=== PATIENT | female | born 1945 | race Caucasian/White ===

== ENCOUNTER 2019-04-20 23:43 | Observation (INO) | payer MEDICARE ==
[2019-04-21 00:22] LABS: #Eosinphils 0.1 thou/uL (0.0-0.7); #Lymphocytes 1.3 thou/uL (1.20-3.40); #Monocytes 0.8 thou/uL (0.11-0.59); #Neutrophils 13.2 thou/uL (1.40-6.50); %Basophils 0.1 % (0.0-1.0); %Eosinophils 0.3 % (0.0-10.0); %Lymphocytes 8.6 % (21.0-51.0); %Monocytes 5.4 % (0.0-10.0); %Neutrophils 85.5 % (42.0-75.0); Hemoglobin 14.5 g/dL (12.0-16.0); Mean Corpuscular HGB CONC 33.3 g/dL (32.0-36.0); Mean Corpuscular Hemoglobin 29.8 pg (27.0-31.0); Mean Corpuscular Volume 89.5 fL (78.0-98.0); Mean Platelet Volume 7.1 fL (7.4-10.4); Platelet Count 354 thou/uL (130-400); RBC Distribution Width 11.5 % (11.5-14.5); Red Blood Cell (RBC) Count 4.85 mill/uL (4.20-5.40); White Blood Cell (WBC) Count 15.4 thou/uL (4.8-10.8)
[2019-04-21 00:43] LABS: ALT (SGPT) 15 U/L (8-55); AST (SGOT) 16 U/L (5-34); Albumin 4.1 g/dL (3.4-4.8); Alkaline Phosphatase 92 U/L (40-110); Anion Gap 16 mmol/L (10-20); BUN (Urea Nitrogen) 26 mg/dL (9.8-20.1); Bilirubin, Total 0.4 mg/dL (0.2-1.2); Calc. Creatinine Clearance 0 mL/min (70-130); Calcium 9.7 mg/dL (7.8-10.44); Carbon Dioxide 23 mmol/L (23-31); Chloride 93 mmol/L (98-107); Estimated GFR-MDRD 45; Globulin 2.7 g/dL (2.4-3.5); Glucose 143 mg/dL (83-110); Potassium 3.9 mmol/L (3.5-5.1); Protein, Total 6.8 g/dL (6.0-8.3); Sodium 128 mmol/L (136-145)
[2019-04-21 02:31] LABS: Bacteria/HPF None Seen HPF (None Seen); Bilirubin Negative (Negative); Blood, Urine Negative (Negative); Clarity Clear (Clear); Glucose, Urine (Dipstick) Normal (Negative); Leukocyte 75 Leu/uL (Negative); Nitrite Negative (Negative); Protein, Urine (Dipstick) 10 mg/dL (Neg-Trace); RBC/HPF 0-3 HPF (0-3); Urobilinogen Normal mg/dL (Less than 2); WBC/HPF 0-3 HPF (0-3)
[2019-04-21] MEDS ORDERED: Piperacillin/Tazobactam 4.5 GM VIAL ONE (03:19)
--- NOTE | 2019-04-21 03:38 | PDOC.FPRHP ---
- History of Present Illness Chief Complaint: Abdominal pain History of Present Illness: Pt is a 73 yo female who presents to the emergency department with abdominal pain, 2 day hx of constipation, and feeling unable to urinate. She endorsed intermittent diarrhea. Her abdominal pain was alleviated after a bm in the ed. She denies fever, chills, N/V, melena, hematochezia, recent travel, change in food, camping. She had a colonoscopy within 10 years which was normal. She is tolerating food but has decreased fluid intake over the last few days. She lives at home with her . PCP: Luis Alfredo ED Course: In the ED she was given zosyn, 1 L NS - Allergies/Adverse Reactions Allergies Allergy/AdvReac Type Severity Reaction Status Date / Time No Known Drug Allergies Allergy Verified 04/21/19 06:34 - Home Medications Medication Instructions Recorded Confirmed Type ARIPiprazole [Aripiprazole] 2 mg PO DAILY 04/21/19 04/21/19 History Cyproheptadine [Periactin] 4 mg PO DAILY 04/21/19 History Levothyroxine Sodium 50 mcg PO DAILY 04/21/19 04/21/19 History Venlafaxine HCl [Venlafaxine HCl 150 mg PO DAILY 04/21/19 04/21/19 History ER] buPROPion HCl [Bupropion Xl] 300 mg PO DAILY 04/21/19 04/21/19 History - History PMHx: hypothyroid, depression PSHx: hysterectomy FHx: non-contributory, no colon cancer Social: lives with , denies T/A/D - Review of Systems General: reports: weight/appetite/sleep changes. denies: fever/chills Eyes: denies: eye pain, vision changes ENT: denies: nasal congestion, rhinorrhea Respiratory: denies: cough, congestion Cardiovascular: denies: chest pain, palpitation, edema Gastrointestinal: reports: constipation, abdominal pain. denies: nausea, vomiting, diarrhea, GI bleeding Genitourinary: denies: incontinence, dysuria, polyuria Skin: denies: rashes, lesions Musculoskeletal: denies: pain, tenderness Neurological: denies: numbness, syncope Psychological: denies: anxiety, depression - Vital signs BP: 152/87 HR: 104 -> 90 RR: 30 Tmax: 98.4 Pox: 96% on RA Wt: 50 kg - Physical Exam Constitutional: NAD, awake, alert and oriented HEENT: PERRLA, EOMI Neck: trachea midline, no JVD Heart: RRR, normal S1/S2, no edema Lungs: CTAB, no respiratory distress, no wheezing Abdomen: soft, non-tender, bowel sounds present Musculoskeletal: normal tone, ROM grossly normal Neurological: no focal deficit, normal sensation Skin: no rash/lesions, capillary refill <2 seconds Heme/Lymphatic: no purpura, no petechia -Psychiatric: Flat affect, decent short term memory FMR H&P: Results - Labs Result Diagrams: 04/21/19 00:13 04/21/19 00:13 Lab results: WBC 15.4 thou/uL (4.8-10.8) H 04/21/19 00:13 Hgb 14.5 g/dL (12.0-16.0) 04/21/19 00:13 Hct 43.4 % (36.0-47.0) 04/21/19 00:13 MCV 89.5 fL (78.0-98.0) 04/21/19 00:13 Plt Count 354 thou/uL (130-400) 04/21/19 00:13 Neutrophils % 85.5 % (42.0-75.0) H 04/21/19 00:13 Sodium 128 mmol/L (136-145) L 04/21/19 00:13 Potassium 3.9 mmol/L (3.5-5.1) 04/21/19 00:13 Chloride 93 mmol/L (98-107) L 04/21/19 00:13 Carbon Dioxide 23 mmol/L (23-31) 04/21/19 00:13 BUN 26 mg/dL (9.8-20.1) H 04/21/19 00:13 Creatinine 1.17 mg/dL (0.6-1.1) H 04/21/19 00:13 Glucose 143 mg/dL (83-110) H 04/21/19 00:13 Lactic Acid 1.4 mmol/L (0.5-2.2) 04/21/19 02:35 Calcium 9.7 mg/dL (7.8-10.44) 04/21/19 00:13 Total Bilirubin 0.4 mg/dL (0.2-1.2) 04/21/19 00:13 AST 16 U/L (5-34) 04/21/19 00:13 ALT 15 U/L (8-55) 04/21/19 00:13 Alkaline Phosphatase 92 U/L (40-110) 04/21/19 00:13 Serum Total Protein 6.8 g/dL (6.0-8.3) 04/21/19 00:13 Albumin 4.1 g/dL (3.4-4.8) 04/21/19 00:13 Urine Ketones 10 mg/dL (Negative) A 04/21/19 02:13 Urine Blood Negative (Negative) 04/21/19 02:13 Urine Nitrite Negative (Negative) 04/21/19 02:13 Ur Leukocyte Esterase 75 Sumaya/uL (Negative) A 04/21/19 02:13 Urine RBC 0-3 HPF (0-3) 04/21/19 02:13 Urine WBC 0-3 HPF (0-3) 04/21/19 02:13 Ur Squamous Epith Cells 4-6 HPF (0-3) A 04/21/19 02:13 Urine Bacteria None Seen HPF (None Seen) 04/21/19 02:13 - Radiology Interpretation CT scan - abdomen Status: pending Additional comment: Per report from ED pt has colitis FMR H&P: A/P - Problem List (1) Colitis Current Visit: Yes Status: Acute Code(s): K52.9 - NONINFECTIVE GASTROENTERITIS AND COLITIS, UNSPECIFIED (2) Leukocytosis Current Visit: Yes Status: Acute Code(s): D72.829 - ELEVATED WHITE BLOOD CELL COUNT, UNSPECIFIED (3) Hypothyroid Current Visit: Yes Status: Acute Code(s): E03.9 - HYPOTHYROIDISM, UNSPECIFIED (4) Depression Current Visit: Yes Status: Acute Code(s): F32.9 - MAJOR DEPRESSIVE DISORDER , SINGLE EPISODE, UNSPECIFIED (5) Constipated Current Visit: Yes Status: Acute Code(s): K59.00 - CONSTIPATION, UNSPECIFIED - Plan Pt is a 73 yo female here for: # Sepsis 2/2 Colitis vs Dehydration vs Urinary Tract Infection Zosyn, 1 L given in the ED - will not continue abx as pt does not have fever, abdominal pain on exam, tachycardia resolving with fluids, lactic WNL. - monitor for signs of infection - procal pending - urine cx pending. Less likely UTI but will culture urine and treat if needed. # Abdominal Pain Likely 2/2 constipation. Had a BM in the ED. Will give miralax # Hypovolemic Hyponatremia - start NS 100 mls/hr # Hypothyroid - check TSH level # Depression - continue home medications - check TSH # NATALIYA vs CKD BUN: Creatinine ratio > 20 - possibly pre-renal etiology - monitor, fluids administered - unsure of baseline VTE: Lovenox Fluids: NS 100 mls/hr Diet: HH Code: Full Dispo: admit to medical obs FMR H&P: Upper Level - Pertinent history 73 year old male presents with bladder discomfort with onset this evening which brought her to the ED. She states it felt like she needed to urinate but could not. She also endorses a two day history of constipation. Last BM was hard, but nonbloody. Patient states she ate fine today, but she made a mistake by not drinking fluids and feels like she got behind. She denies diarrhea, fever, chills, chest pain, palpitations. She states that upon arrival to the ED, they gave her fluids, she urinated and has felt better since that time. She does endorse some fatigue when walking. She now denies any abdominal pain. Patient went to [facility] last week for nausea. She was given antiemetic and sent home from ED. - Pertinent findings General: Alert and oriented x3. No acute distress. HEENT: Dry MM Card: RRR, no murmurs Resp: CTA bilaterally, no acute respiratory distress Abd: Completely benign abdominal exam, nontender to palpation, nondistended, soft Psych: Flat affect, appears depressed Ext: No cyanosis or edema - Plan Date/Time: 04/21/19 0040 IKaitlin, have evaluated this patient and agree with findings/plan as outlined by lab intern resident. Pertinent changes/additions are listed here. Moderate dehydration - s/p 1L NS - Will start patient on NS for maintenance fluids given patient is hyponatremic - Patient already feels better after 1L of fluids Abdominal pain, unspecified and resolved - Per ED physician, read from CT abdomen shows evidence of colitis - Patient's abdominal exam was completely benign - We will treat her constipation which may be a contributing factor - UA with 75 LE's, but there were squamous cells present; will send for culture given presenting complaint was urinary retention - LA 1.4 Leukocytosis - WBC 15 - Likely related to viral process - No significant left shift - Procal pending - Trend Hypovolemic hyponatremia - Will start patient on NS given dehydration - Continue to monitor - Uncertain if new or chronic, suspect chronic - Asymptomatic NATALIYA vs CKD - Suspect degree of dehydration as contributing factor - s/p fluid resuscitation - Will continue to trend - Uncertain of baseline Depression - Patient seen by Psychiatrist today; abilify added to regimen today - Patient with flat affect DVT PPX: Lovenox Code Status: Full Dispo: Obs on medical. Anticipate d/c home today. Addendum - Attending - Attending Attestation Date/Time: 04/21/19 0342 I personally evaluated the patient and discussed the management with Dr. Mejia /Donna. I agree with the History, Examination, Assessment and Plan documented above with any addition or exceptions noted below. Patient here for constipation, stercoral colitis. Surgery was consulted but that consult was not necessary. We have received recommendations from surgery to perform disimpaction and enema and so we will perform that today. She has already had a large volume bowel movement so suspect that her stool burden is diminished. Continue IV fluid support and hold diet until we know the result of her disimpaction, but if successful can likely advance diet.
[2019-04-21 05:10] VITALS: BMI 20.9
[2019-04-21] MEDS: Levothyroxine Sodium 50 MCG TAB PO SCH (06:33)
[2019-04-21] MEDS: Sodium Chloride 0.9% 1,000 ML IV SCH (07:48)
--- NOTE | 2019-04-21 07:51 | CT ---
PRELIMINARY REPORT/[facility]/EMERGENCY AFTER HOURS PROCEDURE: EXAM: CT Abdomen and Pelvis with Intravenous Contrast CLINICAL HISTORY: F73 presents to ED via EMS with c/o constipation and lower ABD pain onset 2200 toda y. Pt reports having a BM at that time, described as small and round, then s/s began after that. Last BM before today was 2 days [employer]. Pt reports associated nausea and inability to urinate. TECHNIQUE: Axial computed tomography images of the abdomen and pelvis with intravenous contrast. CONTRAST: With; ISOVUE 370, 70ML COMPARISON: None provided. FINDINGS: LUNG BASES: No basilar airspace consolidation or pleural effusion. LIVER: There is a ill-defined cystic lesion in the right hepatic lobe measuring about 2.3 x 1.7 cm, w hich appears causing narrowing of the right distal main portal vein and the one of the branches. GALLBLADDER AND BILE DUCTS: Unremarkable. No calcified stone. No ductal dilation. PANCREAS: Unremarkable. SPLEEN: Unremarkable. ADRENAL GLANDS: Unremarkable. KIDNEYS, URETERS, AND BLADDER: Unremarkable. No hydronephrosis or nephrolithiasis. No ureteral or luis alberto dder calculi. STOMACH AND BOWEL: There is a circumferential wall thickening of the left hemicolon including transve rse colon, descending colon, and the sigmoid colon with a large fecal ball in the rectum. APPENDIX: No CT evidence for appendicitis. PERITONEUM: No free fluid. No free air. LYMPH NODES: No lymphadenopathy. REPRODUCTIVE: Unremarkable as visualized. VASCULATURE: No aortic aneurysm. BONES: No fracture or suspicious osseous abnormality. ABDOMINAL WALL AND SOFT TISSUES: Unremarkable. IMPRESSION: 1. There is a ill-defined cystic lesion in the right hepatic lobe measuring about 2.3 x 1.7 cm, which appears causing narrowing of the right distal main portal vein and the one of the branches. Questionable cholangiocarcinoma cannot be excluded. 2. There is a circumferential wall thickening of the left hemicolon including transverse colon, desce nding colon, and the sigmoid colon with a large fecal ball in the rectum. Questionable colitis. ELECTRONICALLY SIGNED BY: Martin Mehta MD Apr 21, 2019 2:14:52 AM CDT FINAL REPORT: EXAM: CT ABDOMEN AND PELVIS HISTORY: Constipation. Lower abdominal pain. COMPARISON: None.. Procedure: Multiple contiguous axial images were obtained and a CT of the abdomen and pelvis with IV contrast. C oronal reformats were performed. FINDINGS: Indeterminate mixed attenuation mass in the right hepatic lobe with areas of linear and nodular enhan cement. Differential considerations include enhancing cystic mass versus a hepatic hemangioma. Characterization is incomplete. Additional hypodensities in the hepatic parenchyma are too small to c haracterize. No evidence of obstructive uropathy. Subcentimeter hypodensities in the kidneys are too small to characterize. There may be mass effect on adjacent vascular structures. No mesenteric ma ss, lymphadenopathy, free air or free fluid. Normal caliber appendix. Transverse colon, descending colon, sigmoid colon demonstrate fluid attenuat ion with bowel wall thickening and pericolonic fat stranding. Correlate for colitis. Moderate fecal material in the rectum. Mild pericolonic fat stranding as well as presacral fat stranding. Correlate for stercoral colitis. IMPRESSION: 1. This report is in agreement with initial report by [facility]. Indeterminate lesion in the r ight hepatic lobe as described above. Differential considerations include a complex cystic mass versus a hemangioma. Better interrogation with abdomen MRI is recommended 2. Bowel wall thickening involving the colon. Correlate for infectious, inflammatory or ischemic coli tis. 3. Fecal material in the sigmoid colon, worrisome for possible stercoral colitis. Results study discussed with Dayanara patient's nurse 04/21/2019 at 7:50 AM. Code CR Transcribed Date/Time: 04/21/2019 7:58 AM
[2019-04-21] MEDS: cefTRIAXone\\ROCEPHIN 1 GM in Sodium Chloride 0.9% 100 ML IVPB SCH (09:39)
[2019-04-21] MEDS: Bupropion 150 MG XL TAB PO SCH (11:23)
[2019-04-21] MEDS: Aripiprazole 2 MG TAB PO SCH (11:23)
[2019-04-21] MEDS: Enoxaparin Sodium 40 MG/0.4 ML SYRINGE SC SCH (11:24)
[2019-04-21] MEDS: Venlafaxine HCl XR 150 MG CAP PO SCH (11:24)
[2019-04-21] MEDS: Polyethylene Glycol 3350 17 GM Packet PO SCH (11:24)
[2019-04-21] MEDS: Cyproheptadine 4 MG TAB PO SCH (11:24)
[2019-04-21] MEDS ORDERED: Piperacillin/Tazobactam 3.375 GM in Sodium Chloride 0.9% 100 ML IVPB SCH (12:00)
[2019-04-21] MEDS ORDERED: hydrALAZINE 20 MG/ML VIAL SLOW IVP SCH (13:15)
[2019-04-21] MEDS: metroNIDAZOLE 500 MG in Premix Bag 1 BAG IVPB SCH ×2 (13:27→21:15)
[2019-04-21] MEDS ORDERED: Iopamidol-370 76% 500 ML 1 ML ONE (14:25)
[2019-04-21] MEDS ORDERED: Lisinopril 10 MG TAB PO SCH (14:45)
[2019-04-21 15:26] LABS: Hemoglobin 14.2 g/dL (12.0-16.0)
[2019-04-21 15:52] LABS: Anion Gap 12 mmol/L (10-20); BUN (Urea Nitrogen) 17 mg/dL (9.8-20.1); Calc. Creatinine Clearance 48 mL/min (70-130); Calcium 8.5 mg/dL (7.8-10.44); Carbon Dioxide 25 mmol/L (23-31); Chloride 100 mmol/L (98-107); Estimated GFR-MDRD 69; Glucose 128 mg/dL (83-110); Potassium 3.8 mmol/L (3.5-5.1); Sodium 133 mmol/L (136-145)
[2019-04-22] MEDS: Sodium Chloride 0.9% 1,000 ML IV SCH ×2 (00:45→13:43)
[2019-04-22 04:20] LABS: #Lymphocytes 0.8 thou/uL (1.20-3.40); #Monocytes 1.1 thou/uL (0.11-0.59); #Neutrophils 14.9 thou/uL (1.40-6.50); %Basophils 0.1 % (0.0-1.0); %Eosinophils 0.1 % (0.0-10.0); %Lymphocytes 4.5 % (21.0-51.0); %Monocytes 6.5 % (0.0-10.0); %Neutrophils 88.8 % (42.0-75.0); Hemoglobin 12.7 g/dL (12.0-16.0); Mean Corpuscular Hemoglobin 31.3 pg (27.0-31.0); Mean Corpuscular Volume 92.1 fL (78.0-98.0); Mean Platelet Volume 7.1 fL (7.4-10.4); Platelet Count 279 thou/uL (130-400); RBC Distribution Width 11.7 % (11.5-14.5); Red Blood Cell (RBC) Count 4.05 mill/uL (4.20-5.40); White Blood Cell (WBC) Count 16.7 thou/uL (4.8-10.8)
[2019-04-22 04:52] LABS: Anion Gap 11 mmol/L (10-20); BUN (Urea Nitrogen) 15 mg/dL (9.8-20.1); Calc. Creatinine Clearance 51 mL/min (70-130); Calcium 8.3 mg/dL (7.8-10.44); Carbon Dioxide 25 mmol/L (23-31); Chloride 102 mmol/L (98-107); Estimated GFR-MDRD 75; Glucose 98 mg/dL (83-110); Potassium 3.8 mmol/L (3.5-5.1); Sodium 134 mmol/L (136-145)
[2019-04-22] MEDS: metroNIDAZOLE 500 MG in Premix Bag 1 BAG IVPB SCH ×3 (06:08→21:08)
[2019-04-22] MEDS: Levothyroxine Sodium 50 MCG TAB PO SCH (06:08)
--- NOTE | 2019-04-22 06:08 | PDOC.FM ---
- Subjective Subjective: Pt resting comfortably in bed, denies any further abd pain or N/V. Pt denies any further BRBPR overnight. - Objective MAR Reviewed: Yes Vital Signs & Weight: Vital Signs (12 hours) Temp Pulse Resp BP Pulse Ox 04/22/19 04:03 98.8 F 88 16 138/63 98 04/22/19 00:01 98.7 F 98 16 146/65 H 98 04/21/19 19:42 98.9 F 110 H 18 148/64 H 99 Weight Weight 50.15 kg I&O: 04/20/19 04/21/19 04/22/19 06:59 06:59 06:59 Intake Total 0 1073 Output Total 400 Balance 0 673 Result Diagrams: 04/22/19 04:04 04/22/19 04:04 Phys Exam - Physical Examination Constitutional: NAD HEENT: moist MMs, sclera anicteric Neck: no nodes, supple, full ROM Respiratory: no wheezing, no rales, no rhonchi, clear to auscultation bilateral Cardiovascular: RRR, no significant murmur Gastrointestinal: soft, non-tender, no distention, positive bowel sounds Musculoskeletal: no edema, pulses present Neurological: non-focal, moves all 4 limbs Psychiatric: normal affect Skin: no rash, normal turgor, cap refill <2 seconds Dx/Plan (1) Colitis Code(s): K52.9 - NONINFECTIVE GASTROENTERITIS AND COLITIS, UNSPECIFIED Status : Acute (2) Constipated Code(s): K59.00 - CONSTIPATION, UNSPECIFIED Status: Acute (3) Depression Code(s): F32.9 - MAJOR DEPRESSIVE DISORDER, SINGLE EPISODE, UNSPECIFIED Status : Acute (4) Hypothyroid Code(s): E03.9 - HYPOTHYROIDISM, UNSPECIFIED Status: Acute (5) Leukocytosis Code(s): D72.829 - ELEVATED WHITE BLOOD CELL COUNT, UNSPECIFIED Status: Acute - Plan Plan: Pt is a 73 yo female here for: # Sigmoid Colitis - Most likely etiology is infectious. Zosyn, 1 L given in the ED, started on rocephin and flagyl 04/20. - tachycardia resolving with fluids, lactic WNL. - CT showed wall thickening of colon, and fecal ball in sigmoid colon suspicious for stercoral colitis. - Pt has passed multiple BM's since CT scan and abd pain alleviated. - procal 0.03 - urine cx no growth at 12hrs. - Dr. Childers, Gen surg consulted on 04/20. States pt does not need surgical consult and recommended rectal exam with enema. - Rectal exam: scant amount of stool in rectal vault, no masses palpated, external hemorrhoids present (non-painful) #BRBPR - two episodes of BRBPR on 04/20. small amount in toilet bowel. - h/h stable. - will consult GI if pt continues to bleed. - pt need colonoscopy once colitis recovered. # Abdominal Pain Likely 2/2 constipation. Had a BM in the ED and intermittent diarrhea episodes since admission. Will give miralax # Hypovolemic Hyponatremia - NS 100 mls/hr - Na 134, improved from 128. #HTN - New diagnosis - started lisinopril 10 mg daily. Gradual decrease in BP - monitor K and renal function. # Hypothyroid - check TSH level # Depression - continue home medications - check TSH, pending # NATALIYA vs CKD, improved BUN: Creatinine ratio > 20 - possibly pre-renal etiology - monitor, fluids administered - unsure of baseline - Cr 0.75 VTE: Lovenox Fluids: NS 100 mls/hr Diet: HH Code: Full Dispo: admit to medical obs Addendum - Attending - Attending Attestation Date/Time: 04/22/19 7346 I personally evaluated the patient and discussed the management with Dr. Begum. I agree with the History, Examination, Assessment and Plan documented above with any addition or exceptions noted below. Patient underwent successful disimpaction yesterday, no residual stool noted in her rectal vault by Dr. Begum. She then underwent enema that did not pass fecal material. She has since had some blood tinged mucous that she has passed, but otherwise no further fecal material. Due to her clinical improvement and lack of findings on rectal exam, it is likely her constipation is resolved. She continues on bowel regimen and we will see how she tolerates diet today. If doing well, likely stable for discharge. We are also getting conflicting reports from the patient's nurse regarding what surgery is stating, even though they are not consulted on this case. We will reach out to them and correct the mis-information as this is causing issues with patient care.
[2019-04-22] MEDS: Venlafaxine HCl XR 150 MG CAP PO SCH (08:28)
[2019-04-22] MEDS: Bupropion 150 MG XL TAB PO SCH (08:28)
[2019-04-22] MEDS: Enoxaparin Sodium 40 MG/0.4 ML SYRINGE SC SCH (08:30)
[2019-04-22] MEDS: Aripiprazole 2 MG TAB PO SCH (08:30)
[2019-04-22] MEDS: Cyproheptadine 4 MG TAB PO SCH (08:30)
[2019-04-22] MEDS: Polyethylene Glycol 3350 17 GM Packet PO SCH ×3 (08:40→21:21)
[2019-04-22] MEDS ORDERED: Lisinopril 10 MG TAB PO SCH (09:00)
[2019-04-22] MEDS: cefTRIAXone\\ROCEPHIN 1 GM in Sodium Chloride 0.9% 100 ML IVPB SCH (09:34)
[2019-04-22] MEDS ORDERED: Glycerin Adult Supp. (12 ct jar) PR SCH ×2 (13:00→21:00)
[2019-04-22] MEDS ORDERED: Bisacodyl 10 MG SUPP PR SCH ×2 (13:15→21:00)
[2019-04-22] MEDS ORDERED: Iopamidol-370 76% 500 ML 1 ML ONE (15:26)
--- NOTE | 2019-04-22 20:09 | CT ---
CT ABDOMEN AND PELVIS PERFORMED WITH CONTRAST ENHANCEMENT: 04/22/19 HISTORY: Concern for impaction. Constipation. Now complaining of diarrhea. COMPARISON: Prior day's exam. The lung bases are clear. Incompletely characterized cystic lesion is seen in the right lobe. On the previous examination, it s howed some questionable peripheral enhancement. There is a cyst identified ion the left lobe adjacent to the falciform ligament and another small cyst seen adjacent to the gallbladder. These are all sta ble. The spleen, pancreas, and gallbladder regions appear unremarkable. Right and left adrenal glands and right and left kidneys are normal in size. There is fluid present w ithin the right and transverse colon consistent with the history of diarrhea. There is fairly pronoun vinicius wall thickening to the descending colon. Slightly increased pericolonic fat stranding as compared to the prior examination. Wall thickening is more pronounced but the colon is also less distended on this exam. There is no pneumatosis identified. The fecal impaction has resolved. There is no pelvic lymphadenopathy or mass. The appendix region appears unremarkable. IMPRESSION: Moderate amount of fluid present within the colon. This includes the right and transverse colon and a lso sigmoid colon. Fecal impaction noted on the prior examination has resolved. Some fluid filled dis tention of some of the small bowel loops and there is persistent wall thickening to the descending co karen compatible with colitis. POS: HERMELINDA
[2019-04-22] MEDS ORDERED: Melatonin 3 MG TAB PO SCH (21:00)
[2019-04-23] MEDS ORDERED: hydrALAZINE 20 MG/ML VIAL SLOW IVP SCH ×2 (01:45→07:00)
[2019-04-23] MEDS ORDERED: Labetalol HCl 100 MG/20 ML VIAL SLOW IVP PRN (03:34)
[2019-04-23] MEDS: Sodium Chloride 0.9% 1,000 ML IV SCH ×2 (03:47→05:02)
[2019-04-23 04:30] LABS: #Neutrophils 13.4 thou/uL (1.40-6.50); %Basophils 0.2 % (0.0-1.0); %Eosinophils 0.2 % (0.0-10.0); %Lymphocytes 6.2 % (21.0-51.0); %Monocytes 6.3 % (0.0-10.0); %Neutrophils 87.1 % (42.0-75.0); Hemoglobin 11.4 g/dL (12.0-16.0); Mean Corpuscular HGB CONC 34.2 g/dL (32.0-36.0); Mean Corpuscular Hemoglobin 31.2 pg (27.0-31.0); Mean Corpuscular Volume 91.3 fL (78.0-98.0); Mean Platelet Volume 7.2 fL (7.4-10.4); Platelet Count 277 thou/uL (130-400); RBC Distribution Width 11.6 % (11.5-14.5); Red Blood Cell (RBC) Count 3.65 mill/uL (4.20-5.40); White Blood Cell (WBC) Count 15.4 thou/uL (4.8-10.8)
[2019-04-23 05:04] LABS: Anion Gap 10 mmol/L (10-20); BUN (Urea Nitrogen) 11 mg/dL (9.8-20.1); Calc. Creatinine Clearance 52 mL/min (70-130); Calcium 8.2 mg/dL (7.8-10.44); Carbon Dioxide 22 mmol/L (23-31); Chloride 108 mmol/L (98-107); Estimated GFR-MDRD 78; Glucose 114 mg/dL (83-110); Sodium 137 mmol/L (136-145)
[2019-04-23] MEDS: metroNIDAZOLE 500 MG in Premix Bag 1 BAG IVPB SCH (05:22)
--- NOTE | 2019-04-23 06:20 | PDOC.FM ---
- Subjective Subjective: Pt became very frustrated overnight and stopped talking to to the staff. She had elevated BP's overnight, and was treated with PRN medications IV. Pt's daughter states that this is not the first time she has become non-verbal. She has been treated by Dr. Sanchez and on 5th week TMS therapy. BP down to 156/72 this AM. - Objective MAR Reviewed: Yes Vital Signs & Weight: Vital Signs (12 hours) Temp Pulse Resp BP BP BP Pulse Ox 04/23/19 04:33 109 H 182/84 H 97 04/23/19 03:42 119 H 193/95 H 04/23/19 03:28 97.9 F 119 H 16 193/93 H 98 04/23/19 01:55 115 H 190/84 H 04/22/19 23:55 97.9 F 115 H 16 194/87 H 99 04/22/19 19:53 97.9 F 99 16 167/78 H 99 Weight Weight 49.895 kg I&O: 04/21/19 04/22/19 04/23/19 06:59 06:59 06:59 Intake Total 0 1761 589 Output Total 500 800 Balance 0 1261 -211 Result Diagrams: 04/23/19 04:02 04/23/19 04:02 Phys Exam - Physical Examination Constitutional: NAD staring straight ahead and eyes full of tears. Does not respond verbally. reacts to pain. HEENT: PERRLA, moist MMs, sclera anicteric Neck: no nodes, no JVD, supple Respiratory: no wheezing, no rales, no rhonchi, clear to auscultation bilateral Cardiovascular: RRR, no significant murmur, no rub Gastrointestinal: soft, no distention, positive bowel sounds Musculoskeletal: no edema, pulses present Neurological: moves all 4 limbs Deviation from normal: withdrawn, tearful eyes, refusing to speak. Skin: no rash, normal turgor Dx/Plan (1) Colitis Code(s): K52.9 - NONINFECTIVE GASTROENTERITIS AND COLITIS, UNSPECIFIED Status : Acute (2) Constipated Code(s): K59.00 - CONSTIPATION, UNSPECIFIED Status: Acute (3) Depression Code(s): F32.9 - MAJOR DEPRESSIVE DISORDER, SINGLE EPISODE, UNSPECIFIED Status : Acute (4) Hypothyroid Code(s): E03.9 - HYPOTHYROIDISM, UNSPECIFIED Status: Acute (5) Leukocytosis Code(s): D72.829 - ELEVATED WHITE BLOOD CELL COUNT, UNSPECIFIED Status: Acute - Plan Plan: Pt is a 73 yo female here for: # Sigmoid Colitis - Most likely etiology is infectious. Zosyn, 1 L given in the ED, started on rocephin and flagyl 04/20-04/22. Transition to Po Augmentin today and plan for probably d/c home. - tachycardia resolving with fluids, lactic WNL. - CT showed wall thickening of colon, and fecal ball in sigmoid colon suspicious for stercoral colitis. Repeat CT scan on 04/21 shows resolution of fecal impaction, and continued colitis. - Pt has passed multiple BM's since CT scan and abd pain alleviated. - procal 0.03 - urine cx no growth at 12hrs. - Dr. Childers, Gen surg consulted on 04/20. States pt does not need surgical consult and recommended rectal exam with enema. On 04/20 Dr. Childers recommended GI consult, repeat CT scan and more aggressive bowel regimen for alleviation of fecal impaction. - Rectal exam: scant amount of stool in rectal vault, no masses palpated, external hemorrhoids present (non-painful) #BRBPR - two episodes of BRBPR on 04/20. small amount in toilet bowel. - h/h stable. - will consult GI if pt continues to bleed. - pt need colonoscopy once colitis recovered. # Abdominal Pain Likely 2/2 constipation. Had a BM in the ED and intermittent diarrhea episodes since admission. Will give miralax # Hypovolemic Hyponatremia - NS 100 mls/hr - Na 134, improved from 128. #HTN - New diagnosis - started lisinopril 10 mg daily. Gradual decrease in BP - monitor K and renal function. # Hypothyroid - check TSH level # Depression - continue home medications - check TSH wnl - withdrawn, refusing to speak. Pt has a hx of this behavior. - Psychiatrist, Dr. Sanchez. Called his office and left a call back number to discuss pt's care and discharge plan. # NATALIYA vs CKD, improved BUN: Creatinine ratio > 20 - possibly pre-renal etiology - monitor, fluids administered - unsure of baseline - Cr 0.75 VTE: Lovenox Fluids: NS 100 mls/hr Diet: HH Code: Full Dispo: admit to medical obs Addendum - Attending - Attending Attestation Date/Time: 04/23/19 4241 I personally evaluated the patient and discussed the management with Dr. Begum. I agree with the History, Examination, Assessment and Plan documented above with any addition or exceptions noted below.
[2019-04-23] MEDS: Levothyroxine Sodium 50 MCG TAB PO SCH (06:24)
--- NOTE | 2019-04-23 08:21 | CON ---
DATE OF CONSULTATION: 04/22/2019 [facility] SERVICE: Vishal Mejia DO. REASON FOR CONSULTATION: Abdominal pain, constipation, abnormal CT scan of abdomen. HISTORY OF PRESENT ILLNESS: Ms. Irma Schmitt is a very pleasant 73-year-old fragile-looking female, hospitalized with abdominal pain and constipation. She mentions some loose stools before her constipation. She appears very comfortable. She is in no distress. She denies abdominal pain, nausea, or vomiting at the present time. She tells me she came with abdominal pain for 2 days and the pain was over the lower abdomen. The pain is resolved. She has had no stool in the last couple of days. She says she has a history of constipation. She has a BM every 3rd day. Nothing unusual for her. is on clear liquid diet. Abdominal CAT scan done on admission, which revealed a cystic lesion, complex in nature over the right lobe of the liver. She also has some fecal material in the sigmoid area. There is also mention of fecal balls in the rectum. The patient has had different rectal suppositories and she has passed small amount of stool as per the nurses. There is some mention of hematochezia, but blood count is actually very stable. The patient is awake, alert, and communicative. However, she is not very good historian. She said she had a colonoscopy 2 years ago, but she does not know where it was done and who performed. Apparently, it was supposed to be negative. I could not find any operative port in the [facility] on this patient from before. The patient at the present time is very comfortable. Denies abdominal pain. Denies any nausea or vomiting. Denies any dysuria, hematuria, or frequency of urination. The patient had no other relevant history. ALLERGIES: NO DRUG ALLERGIES. SOCIAL HISTORY: The patient does not smoke or drink alcohol. MEDICAL ILLNESSES: 1. Hypothyroidism. 2. Depression. SURGERIES: 1. Hysterectomy. 2. History of colonoscopy in the past. SOCIAL HISTORY: She is . She does not smoke or drink alcohol. FAMILY HISTORY: No family history of cancer, stroke, or heart disease. MEDICATIONS: Reviewed. REVIEW OF SYSTEMS: A 10-point system reviewed. CONSTITUTIONAL: No history of weight loss. No fever or chills. Has good exercise tolerance. EYES: No impaired vision or diplopia. EARS: No ear discharge. No pain. NOSE: No nose bleed. THROAT: No sore throat. LUNGS: No chronic coughing, hemoptysis, dyspnea. CARDIOVASCULAR: No chest pain. No palpitation. No dyspnea, orthopnea, or PND. GI: Abdominal pain at this time is resolved. History of constipation. No hematochezia. GENITOURINARY: No dysuria, hematuria, or frequency of urination. MUSCULOSKELETAL: No back pain or arthralgias. PSYCHIATRIC: No history of depression or anxiety. NEUROLOGIC: No weakness, numbness, or tingling. PHYSICAL EXAMINATION: GENERAL: She is a very pleasant, fragile looking female, appears very comfortable. She is awake, alert, communicative. VITAL SIGNS: She is afebrile. Pulse is 90 and blood pressure is 143/63. HEENT: Conjunctivae are clear. NECK: Supple. No adenitis or any thyroid masses seen. CARDIOVASCULAR SYSTEM: Normal heart sounds heard. No murmur heard. LUNGS: Clear to auscultation. GI: Abdomen is soft. Abdomen is nondistended. Abdomen is nontender. No organomegaly. No masses. Bowel sounds normal. RECTAL: completely empty. There is no blood . EXTREMITIES: No edema. LABORATORY DATA: On admission: CBC: WBC 15,400 and today 16,700; hemoglobin 14.5; hematocrit 43.4; MCV 89.5; platelet count is 354,000, polymorphs 85, lymphocytes 8, monocytes 5. Today's CBC with a WBC count of 16,700, hemoglobin 12.7, and hematocrit 37.3. Chemistry panel shows normal chem-7, BUN is 15, creatinine 0.75, glucose is 98, and calcium 8.3. TSH 1.8650. Abdominal CAT scan reviewed with Radiology. The patient has mostly retained stool in the sigmoid colon area. There is no evidence of fecal impaction. She also had a cystic lesion in the liver, which appears . Also discussion with radiologist, this can be followed up as outpatient in 6 months' time. There is nothing to suggest she has a hepatic metastasis or primary liver cancer. The lesion appears cystic. CLINICAL IMPRESSION: 1. Abdominal pain and constipation. There is no abdomen exam is very benign. CAT scan again shows nothing impressive except for some retained stool in the sigmoid colon area. 2. Hypothyroidism. 3. Depression. 4. Liver cyst, most likely hemangioma 6-month followup, MR or CAT scan. RECOMMENDATIONS: 1. Lactulose 30 mL p.o. 3 to 4 hours. 2. Rectal suppositories. 3. From GI standpoint, there is nothing acute going on. In the long run, I think she will probably benefit by once a day or possible lactulose twice a day. Job ID: [id number]
[2019-04-23] MEDS ORDERED: Lisinopril 20 MG TAB PO SCH (09:00)
[2019-04-23] MEDS ORDERED: Amoxicillin/Potassium Clav 875 MG TAB PO SCH (09:00)
[2019-04-23] MEDS ORDERED: Lactinex Tablet PO SCH (09:00)
[2019-04-23] MEDS ORDERED: Acetaminophen 500 MG TAB PO PRN (13:53)
--- NOTE | 2019-04-23 13:53 | PDOC.BPN ---
- Brief Progress Note Spoke with Dr. Sanchez, Pt's psychiatrist, who informed me of the pt's hx of very similar catatonic behavior previously. He is currently treating her with TMS and they are on week 5 of this. He states she would benefit from going to seek treatment at [facility] in [place], and possible ECT. Pt's family does not want to take her currently as they think she will get better once she hears about her getting out of surgery. Pt's family has called to set up an appointment with Dr. Sanchez [facility], as they are not wanting to take pt to [facility]. Dr. Sanchez has called [facility] about the patient and will be communicating the care plan to me. The pt is cleared from a medical standpoint. The pt started to respond verbally and cry this afternoon. The pt's family understands the recommendations of Dr. Sanchez to f/u with him and seek care at [facility].
--- NOTE | 2019-04-23 14:16 | PDOC.BPN ---
- Brief Progress Note discussed plan with family they state she woke up and told them she wanted to go home They state they have no guns at home and have meds locked up. They will put up the knives. Discussed Dr. Sanchez's rec for d/c from hospital and take her to inpatient psych facility. Dr. Sanchez rec'd discharging her from hospital and having them drive to [place] [place] for inpatient ECT treatment. They understand these are his recs but they are refusing these recs and want to take her home. they have 3 people at home that will be with her 03/09. Discussed recommendation to follow up with Dr. Sanchez by the end of the week. Will d/c patient with bowel regimen and augmentin.
[2019-04-23 15:37] VITALS: TEMP 99.7
[2019-04-23 20:38] VITALS: BP 152/65
--- NOTE | 2019-04-28 11:04 | DIS ---
DATE OF ADMISSION: 04/21/2019 DATE OF DISCHARGE: 04/23/2019 ADMITTING ATTENDING: Ochoa Machuca MD DISCHARGE ATTENDING: Ochoa Machuca MD CONSULTS: Dr. Boyd with GI on 04/22/2019. PROCEDURES: Soap suds enema. CT scan of abdomen and pelvis, which showed an ill-defined cystic lesion in the right hepatic lobe measuring 2.3 to 1.7 cm, which appears causing narrowing of the right distal main portal vein and one of the branches. Questionable for cholangiocarcinoma cannot be excluded. There is also circumferential wall thickening of left hemicolon including transverse colon, descending colon, and sigmoid colon with a large fecal ball in the rectum, questionable colitis. Repeat CT abdomen and pelvis on 04/21, shows resolution of the fecal ball impaction as well as still moderate fluid in the colon licensing representative of colitis. DIAGNOSES: 1. Sigmoid colitis. 2. Bright red blood per rectum. 3. Abdominal pain. 4. Hypovolemic hyponatremia. 5. Hypertension. 6. Hypothyroidism. 7. Depression with catatonia. 8. Acute kidney injury versus chronic kidney disease, which was improved. DISCHARGE MEDICATIONS: 1. Augmentin 875/125 one pill p.o. b.i.d. for 10 days. 2. Lisinopril 10 mg p.o. daily, 30 tabs given. 3. Aripiprazole 2 mg p.o. daily. 4. Bupropion 300 mg p.o. daily. 5. Cyproheptadine 4 mg p.o. daily. 6. Lactobacillus one tab p.o. daily. 7. Levothyroxine 50 mcg p.o. daily. 8. Melatonin 3 mg tab nightly. 9. MiraLAX 17 g p.o. t.i.d. 10. Venlafaxine 150 mg p.o. daily. HISTORY OF PRESENT ILLNESS/HOSPITAL COURSE: Ms. Schmitt is a 73-year-old female with history of depression, currently being treated by Dr. Sanchez, hypothyroidism and intermittent constipation, comes in presenting with a couple of day history of abdominal pain and constipation, which had turned into a couple of episodes of diarrhea. She was admitted for colitis with moderate dehydration. The patient was placed on IV fluid hydration as well as IV antibiotics, Rocephin and Flagyl to treat the colitis. The patient was also started on a bowel regimen of MiraLAX and given soap suds enema to alleviate the fecal impaction in her sigmoid colon. The patient had multiple episodes of diarrhea large in volume, especially on day 04/21. Dr. Childers was originally consulted, but after speaking with him, decided that he did not need to evaluate the patient as that was not a surgical problem. He did, however, recommend that we consult GI and perform enemas, rectal exam, and repeat CT scan. GI was consulted with Dr. Boyd, who states that the patient is stable and having bowel movements. There was no concern at this time. We thank you for your recommendations. The patient's TSH was 1.86. Urine culture showed 10 to 25,000 normal skin jim, not needing any antibiotics. The patient's blood pressure was elevated throughout her hospital stay and she had never been on blood pressure medication previously. We decided to place her on low dose of lisinopril at this time and to have her follow up with Dr. Lobato to see if this is necessary in the outpatient setting or to be on any medication for her blood pressure. The pt had a mass in her liver that was found on CT abd. It is recommended that she receive further workup of this mass in the outpt setting as there is risk for HCC. On the day of discharge, the patient became very catatonic, not responding to anyone, and just lying there listlessly with tears in her eyes. She, however, did withdraw to painful stimuli over her nail bed, but would not engage in any type of meaningful conversation with me. Later this afternoon on 04/22, she did begin to cry and speak with her family members and verbalized that she just wanted to go home and did not want to be at the hospital anymore. Dr. Sanchez her psychiatrist will see the pt in the outpt setting and recommends further treatment, possibly ECT. Pt's family states they will be with her 03/09 and want to take her home to care for her there. They are agreeable to see Dr. Daniel HARVEY. PT was cleared for d/c from a medical standpoint. Dispo: stable, states she would like to go home. Family to care for her 24/7 until recovered. Location: to home Diet: advance as tolerated Activity: as tolerated Follow up: Dr. Sanchez, Psychiatrist first available appointment, He confirmed he would see her [facility] in telephone conversations as family did not want to take her to a treatment facility. PCP 1 week. GI for further workup of mass found of CT scan of abd in liver. Job ID: [id number] MTDD
== END 2019-04-23 16:39 | disposition home or self-care (01) ==
LOC: ERS 23:43 → INTOOBSV 04-21 03:08 → ONC 04-21 03:08
PROVIDERS: ADMIT Internal Medicine; ATTEND Student in an Organized Health Care Education/Training Program
DX: K52.9 Noninfective gastroenteritis and colitis, unspecified (principal); D72.829 Elevated white blood cell count, unspecified; E03.9 Hypothyroidism, unspecified; F32.9 Major depressive disorder, single episode, unspecified; K59.00 Constipation, unspecified; E87.1 Hypo-osmolality and hyponatremia; K76.89 Other specified diseases of liver; Z90.710 Acquired absence of both cervix and uterus; Z98.890 Other specified postprocedural states; Z79.899 Other long term (current) drug therapy
CPT/HCPCS: 74177 ×2; 80048 ×3; 80053; 83605; 84145; 84443; 85014; 85018; 85025 ×3; 87086; 96361 ×4; 96365; 96366; 96367; 96372; 96375 ×2; 96376 ×3; 99285; G0378 ×3; 36415; 81003; 81015; J0360; J0696; J1650; J2543; J3490; Q9967